=== PATIENT | male | born 1960 | race Caucasian/White ===

== ENCOUNTER 2020-09-16 13:50 | Day surgery (SDC) | payer MEDICARE ==
[2020-09-16] MEDS ORDERED: Sodium Chloride 0.9(Preservative Free) 10 ML IJ ONE (13:51)
[2020-09-16] MEDS ORDERED: Xylocaine 1% Vial 30 ML PF IJ ONE (13:51)
[2020-09-16] MEDS ORDERED: Depo-Medrol 40 MG/ML IM ONE (13:51)
--- NOTE | 2020-09-16 16:47 | XRAY ---
Indication: Lumbar HARRY. Intraoperative fluoroscopy provided for 19 seconds. 2 digital spot image submitted for interpretation demonstrates midline posterior needle tip projecting just posterior to the lumbosacral interspace. Small amount of contrast injected for needle tip placement. Correlate with intraoperative findings/report.
--- NOTE | 2020-09-16 16:51 | XRAY ---
19 seconds fluoroscopy time in surgery for lumbar HARRY.
== END 2020-09-16 16:04 | disposition home or self-care (01) ==
LOC: SDC-PAIN 13:50
PROVIDERS: ATTEND Psychiatry & Neurology Pain Medicine
DX: M54.16 Radiculopathy, lumbar region (principal); K21.9 Gastro-esophageal reflux disease without esophagitis; F43.10 Post-traumatic stress disorder, unspecified; Z79.899 Other long term (current) drug therapy
CPT/HCPCS: 62323; 72100; 77003; J1030; J2001; Q9966